=== PATIENT | female | born 1960 | race Caucasian/White ===

== ENCOUNTER → 2020-01-22 14:20 | Outpatient (BNVA) | payer OTHER, SELFPAY | PROVIDERS: Family Provider Family Medicine; PCP Family Medicine; Visit Provider Internal Medicine | DX: M19.90 Unspecified osteoarthritis, unspecified site (principal); Z11.59 Encounter for screening for other viral diseases; Z79.899 Other long term (current) drug therapy | CPT/HCPCS: 36415; 99213 ==

== ENCOUNTER 2020-01-22 16:25 | Outpatient (CLI) | payer OTHER, SELFPAY ==
--- NOTE | 2020-01-22 16:29 | XR_ITS ---
WS: [id number] LEFT HAND: 3 VIEW(S) TECHNIQUE: PA, oblique and lateral. HISTORY: hand pain COMPARISON: None available. No acute fracture or dislocation. Severe degenerative changes at the second PIP joint. There is loss of the joint space and cartilage w ith erosive and productive changes in the bone. There are erosions and overhanging margins. There is additional mild narrowing of the remaining interphalangeal joints. Sparing of the first carpometacarp al joint. No erosions at the metacarpal heads. XR/XR hand LT 2V [id number] IMPRESSION: 1. Advanced degenerative changes of erosive and productive changes most signif icant at the second PIP joint. Sparing of the metacarpal heads. Consider gout a nd erosive arthritis. 2. No metacarpal head erosions.
--- NOTE | 2020-01-22 16:29 | XR_ITS ---
WS: [id number] BILATERAL AP HIPs: 2 VIEW(S) TECHNIQUE: AP and lateral. HISTORY: SI joint arthritis COMPARISON: None available. No acute fracture or dislocation of the hips. No joint space narrowing or bone destruction. No soft tissue abnormality. Inferior SI joints contains a small amount of air but no fusion. XR/XR hip BI 2V wo/w pel [id number] IMPRESSION: Negative AP hips.
--- NOTE | 2020-01-22 16:29 | XR_ITS ---
WS: [id number] RIGHT HAND: 3 VIEW(S) TECHNIQUE: PA, oblique and lateral. HISTORY: hand pain COMPARISON: None available. No acute fracture or dislocation. Interphalangeal joint space narrowing with sclerosis, bone proliferation and mild subluxation, most s ignificant involving the DIP joints of the second and third finger and also mild diffuse involvement of the PIP joints from the second through fifth fingers. There is soft tissue edema and thickening of the joint spaces. No involvement of the carpometacarpal. XR/XR hand RT 2V [id number] IMPRESSION: Findings most significant for osteoarthritis.
== END 2020-01-22 16:26 | disposition home or self-care (01) ==
LOC: WPI 16:29
PROVIDERS: PCP Family Medicine; Visit Provider Internal Medicine
DX: M19.90 Unspecified osteoarthritis, unspecified site (principal); M79.642 Pain in left hand; M79.641 Pain in right hand
CPT/HCPCS: 73120; 73521; 80053; 82542; 84550; 85025; 85651; 86140; 86431; 86704; 86803; 86812; 87340

== ENCOUNTER → 2020-02-19 09:38 | Outpatient (BNVA) | payer OTHER, SELFPAY | PROVIDERS: PCP Family Medicine; Visit Provider Internal Medicine | DX: M19.90 Unspecified osteoarthritis, unspecified site (principal); R76.8 Other specified abnormal immunological findings in serum; D75.89 Other specified diseases of blood and blood-forming organs; R35.8 Other polyuria | CPT/HCPCS: 81001; 99214 ==

== ENCOUNTER → 2020-10-28 12:33 | Outpatient (BNVA) | payer OTHER, SELFPAY | PROVIDERS: PCP Family Medicine; Visit Provider Internal Medicine Rheumatology | DX: Z79.899 Other long term (current) drug therapy (principal); M79.643 Pain in unspecified hand; R70.0 Elevated erythrocyte sedimentation rate; M19.90 Unspecified osteoarthritis, unspecified site | CPT/HCPCS: 36415; 80053; 85025; 85651; 86140 ==

== ENCOUNTER 2020-11-06 10:44 | Outpatient (CLI) | payer OTHER, SELFPAY ==
--- NOTE | 2020-11-06 10:50 | XR_ITS ---
WS: [id number] Lateral views of cervical spine in the flexion, extension and neutral positions. 11/06/2020 Clinical Data: M19.90 - Unspecified osteoarthritis, unspecified site Comparison: None. Findings: There is an anterior cervical disc fusion at C5-C6 with obliteration of the C5-C6 disc space. On flex ion and extension the disc fusion is stable. No limitation of motion or subluxation is noted. There i s no prevertebral soft tissue swelling. XR/XR cervical spine fl/ex [id number] Impression: 1. C5-C6 anterior cervical disc fusion. 2. Stable anterior cervical disc fusion on flexion or extension. 3. Negative for subluxation on flexion or extension.
--- NOTE | 2020-11-06 10:50 | XR_ITS ---
WS: [id number] Lumbar spine, 3 views, 11/06/2020 Clinical Data: M19.90 - Unspecified osteoarthritis, unspecified site Comparison: None. Findings: No compression fractures or subluxation is seen. No disc space narrowing is seen. The transverse proc esses and SI joints are normal. There is a large amount of fecal material in the colon. XR/XR lumbar spine 2-3V* [id number] Impression: Negative lumbar spine.
--- NOTE | 2020-11-06 10:50 | XR_ITS ---
WS: [id number] Thoracic spine, 3 views, 11/06/2020 Clinical Data: M19.90 - Unspecified osteoarthritis, unspecified site Comparison: None. Findings: No compression fractures are seen. The disc heights are normal. The paravertebral regions are normal. There is an anterior cervical disc fusion at C5-C6. XR/XR thoracic spine 3V* [id number] Impression: Negative thoracic spine.
[2020-11-06 12:08] LABS: C Reactive Protein 1.3 mg/L (0.0-4.9); Creatine Phosphokinase 268 U/L (26-192)
[2020-11-06 13:17] LABS: CKMB 1.8 ng/mL (0-5.34)
[2020-11-06 13:20] LABS: Erythrocyte Sedimentation Rate 34 mm/hr (0-15)
[2020-11-11 16:53] LABS: Gliadin Ab.IgA 3 U (<20); Gliadin Ab.IgG 1 U (<20)
[2020-11-12 02:53] LABS: Tissue Transglutaminase IgA Ab <1 U/mL; Tissue transglutaminase Ab.IgG <1 U/mL
[2020-11-12 16:52] LABS: Immunoglobulin A 131 mg/dL (70-320)
== END 2020-11-06 10:45 | disposition home or self-care (01) ==
PROVIDERS: PCP Family Medicine; Visit Provider Internal Medicine
DX: M19.90 Unspecified osteoarthritis, unspecified site (principal); M79.643 Pain in unspecified hand; R70.0 Elevated erythrocyte sedimentation rate; Z79.899 Other long term (current) drug therapy
CPT/HCPCS: 72040; 72072; 72100; 81291; 82550; 82553; 82784; 83516; 85651; 86140; 99214

== ENCOUNTER → 2020-12-09 11:14 | Outpatient (BNVA) | payer OTHER, SELFPAY | PROVIDERS: PCP Family Medicine; Visit Provider Internal Medicine | DX: M19.90 Unspecified osteoarthritis, unspecified site (principal); R70.0 Elevated erythrocyte sedimentation rate; Z79.899 Other long term (current) drug therapy | CPT/HCPCS: 36415; 80053; 85025; 85651; 86140 ==

== ENCOUNTER → 2020-12-15 09:40 | Outpatient (BNVA) | payer OTHER, SELFPAY | PROVIDERS: PCP Family Medicine; Visit Provider Internal Medicine | DX: M19.90 Unspecified osteoarthritis, unspecified site (principal); R70.0 Elevated erythrocyte sedimentation rate; M79.643 Pain in unspecified hand; Z11.1 Encounter for screening for respiratory tuberculosis; Z79.899 Other long term (current) drug therapy; Z85.9 Personal history of malignant neoplasm, unspecified | CPT/HCPCS: 36415; 86480; 99213 ==

== ENCOUNTER → 2020-12-18 12:07 | Outpatient (BNVA) | payer OTHER, SELFPAY | PROVIDERS: PCP Family Medicine; Referring Provider Family Medicine; Visit Provider Anesthesiology | DX: G89.29 Other chronic pain (principal); M54.5 Low back pain; M19.90 Unspecified osteoarthritis, unspecified site; M79.651 Pain in right thigh; M79.652 Pain in left thigh; Z79.891 Long term (current) use of opiate analgesic | CPT/HCPCS: 99204 ==

== ENCOUNTER → 2021-01-07 15:20 | Outpatient (BNVA) | payer OTHER, SELFPAY | PROVIDERS: PCP Family Medicine; Visit Provider Anesthesiology | DX: G89.29 Other chronic pain (principal); M54.5 Low back pain; M19.90 Unspecified osteoarthritis, unspecified site; Z79.891 Long term (current) use of opiate analgesic | CPT/HCPCS: 99213 ==

== ENCOUNTER → 2021-03-18 09:56 | Outpatient (BNVA) | payer OTHER, SELFPAY | PROVIDERS: PCP Family Medicine; Visit Provider Internal Medicine | DX: M19.049 Primary osteoarthritis, unspecified hand (principal); M54.50 Low back pain, unspecified; R70.0 Elevated erythrocyte sedimentation rate; M70.60 Trochanteric bursitis, unspecified hip; Y93.9 Activity, unspecified; G62.9 Polyneuropathy, unspecified; Z79.899 Other long term (current) drug therapy; Z92.21 Personal history of antineoplastic chemotherapy | CPT/HCPCS: 36415; 99214 ==

== ENCOUNTER 2021-03-18 11:15 | Outpatient (CLI) | payer OTHER, SELFPAY ==
--- NOTE | 2021-03-18 11:21 | XR_ITS ---
WS: [id number] LUMBAR SPINE: 3 VIEWS TECHNIQUE: AP, lateral and L5-S1 spot. HISTORY: M54.50 - Low back pain, unspecified COMPARISON: 11/06/2020 Posterior alignment is normal. There is very slight RIGHT curvature of the lumbar spine. Pedicles are all identified. No acute fracture. Diffuse osteopenia. Facet joint arthritis is mild at L4-5 and L5-S1. SI joints are symmetric bilaterally. No soft tissue abnormalities. XR/XR lumbar spine 2-3V* [id number] IMPRESSION: 1. No acute lumbar spine fracture. 2. Mild RIGHT curvature lumbar spine with osteopenia. 3. Mild facet joint arthritis at L4-5 and L5-S1.
--- NOTE | 2021-03-18 11:21 | XR_ITS ---
WS: [id number] Bilateral hips. HISTORY: Chronic hip and low back pain. COMPARISON: None. Mild narrowing of the hip joints bilaterally. No significant osteophytosis. No destructive bone lesio ns. No significant osteophytic ridging. No soft tissue abnormalities. XR/XR hip BI 3-4V wo/w pel [id number] IMPRESSION: Very mild early changes of osteoarthritis at the hip joints.
== END 2021-03-18 11:16 | disposition home or self-care (01) ==
PROVIDERS: PCP Family Medicine; Visit Provider Internal Medicine
DX: M54.50 Low back pain, unspecified (principal)
CPT/HCPCS: 72100; 73522; 80053; 82607; 84207; 84443; 85025; 85651; 86140

== ENCOUNTER → 2021-04-17 10:00 | Outpatient (BNVA) | payer OTHER, SELFPAY | PROVIDERS: PCP Family Medicine; Visit Provider Anesthesiology | DX: G89.29 Other chronic pain (principal); M54.50 Low back pain, unspecified; M19.90 Unspecified osteoarthritis, unspecified site; Z79.899 Other long term (current) drug therapy; Z79.891 Long term (current) use of opiate analgesic | CPT/HCPCS: 99213 ==

== ENCOUNTER 2021-11-09 09:32 | Outpatient (CLI) | payer OTHER, SELFPAY ==
[2021-11-09 10:05] LABS: Basophils % 0.7 %; Eosinophils # 0.1 10^3/uL (0.0-0.8); Eosinophils % 2.1 %; Hematocrit 36.1 % (37.0-47.0); Hemoglobin 12.1 g/dL (11.5-15.3); Lymphocytes # 2.3 10^3/uL (0.8-4.8); Lymphocytes % 37.5 %; Mean Corpuscular HGB Conc 33.5 g/dL (30.0-36.0); Mean Corpuscular Hemoglobin 31.9 pg (28.0-34.0); Mean Corpuscular Volume 95.3 fl (81-99); Mean Platelet Volume 10.1 fL (7.4-10.4); Monocytes # 0.6 10^3/uL (0.2-0.9); Neutrophils # 3.01 10^3/uL (1.8-7.7); Neutrophils % 49.2 %; Nucleated Red Blood Cells % 0 %; Platelet Count 289 10^3/cmm (130-400); Red Blood Count 3.79 10^6/uL (4.1-5.3); Red Cell Distribution Width 12.3 % (12.1-15.1); White Blood Count 6.1 10^3/uL (4.0-10.0)
[2021-11-09 10:16] LABS: Alanine Aminotransferase 22 U/L (0-33); Albumin Level 4.5 g/dL (3.5-5.2); Alkaline Phosphatase 79 IU/L (35-105); Aspartate Amino Transferase 28 U/L (0-32); Blood Urea Nitrogen 11 mg/dL (8-23); Calcium 9.3 mg/dL (8.5-10.5); Carbon Dioxide 27 mmol/L (22-29); Chloride 106 mmol/L (98-107); Globulin 2.4 g/dL (1.3-4.6); Glomerular Filtration Rate 101.3 mL/min (90-130); Glucose 77 mg/dL (65-115); Osmolality Calculated 292 mOsm/kg (285-295); Sodium 142 mmol/L (136-145); Total Bilirubin 0.2 mg/dL (0.15-1.2); Total Protein 6.9 g/dL (6.6-8.7)
[2021-11-12 18:28] LABS: Erythrocyte Sedimentation Rate 36 mm/hr (0-15)
== END 2021-11-09 09:33 | disposition home or self-care (01) ==
PROVIDERS: PCP Family Medicine; Visit Provider Internal Medicine
DX: G62.9 Polyneuropathy, unspecified (principal); M54.50 Low back pain, unspecified; M70.60 Trochanteric bursitis, unspecified hip
CPT/HCPCS: 36415; 80053; 85025; 85651; 86140

== ENCOUNTER → 2022-04-19 08:22 | Outpatient (BNVA) | payer MEDICARE, OTHER, SELFPAY | PROVIDERS: PCP Family Medicine; Visit Provider Internal Medicine | DX: M19.90 Unspecified osteoarthritis, unspecified site (principal); Z79.891 Long term (current) use of opiate analgesic; R70.0 Elevated erythrocyte sedimentation rate; G62.9 Polyneuropathy, unspecified | CPT/HCPCS: 80053; 82306; 84207; 85025; 85651; 86140; 99213 ==

== ENCOUNTER → 2022-10-07 15:15 | Outpatient (BNVA) | payer MEDICARE, OTHER, SELFPAY | PROVIDERS: PCP Family Medicine; Visit Provider Internal Medicine | DX: G62.9 Polyneuropathy, unspecified (principal); M19.90 Unspecified osteoarthritis, unspecified site; R70.0 Elevated erythrocyte sedimentation rate | CPT/HCPCS: 99214 ==

== ENCOUNTER 2022-10-08 09:05 | Outpatient (CLI) | payer MEDICARE, OTHER, SELFPAY ==
[2022-10-08 09:51] LABS: Basophils % 0.4 %; Eosinophils # 0.1 10^3/uL (0.0-0.8); Eosinophils % 0.5 %; Hematocrit 41.8 % (37.0-47.0); Hemoglobin 13.3 g/dL (11.5-15.3); Lymphocytes # 1.8 10^3/uL (0.8-4.8); Lymphocytes % 19.8 %; Mean Corpuscular HGB Conc 31.8 g/dL (30.0-36.0); Mean Corpuscular Hemoglobin 31.6 pg (28.0-34.0); Mean Corpuscular Volume 99.3 fl (81-99); Mean Platelet Volume 9.7 fL (7.4-10.4); Monocytes # 0.8 10^3/uL (0.2-0.9); Monocytes % 8.7 %; Neutrophils # 6.39 10^3/uL (1.8-7.7); Neutrophils % 69.8 %; Nucleated Red Blood Cells % 0 %; Platelet Count 347 10^3/cmm (130-400); Red Blood Count 4.21 10^6/uL (4.1-5.3); Red Cell Distribution Width 12.8 % (12.1-15.1); White Blood Count 9.2 10^3/uL (4.0-10.0)
[2022-10-08 10:04] LABS: Alanine Aminotransferase 21 U/L (0-33); Albumin Level 4.4 g/dL (3.5-5.2); Alkaline Phosphatase 71 U/L (35-105); Aspartate Amino Transferase 27 U/L (0-32); Blood Urea Nitrogen 18 mg/dL (8-23); Calcium 9.8 mg/dL (8.5-10.5); Carbon Dioxide 24 mmol/L (22-29); Chloride 103 mmol/L (98-107); Globulin 2.9 g/dL (1.3-4.6); Glucose 91 mg/dL (65-115); Osmolality Calculated 291 mOsm/kg (285-295); Sodium 140 mmol/L (136-145); Total Bilirubin 0.3 mg/dL (0.15-1.2); Total Protein 7.3 g/dL (6.6-8.7)
[2022-10-08 10:23] LABS: Erythrocyte Sedimentation Rate 46 mm/hr (0-15)
[2022-10-08 10:45] LABS: Anion Gap 17.1 (5-19); Potassium 4.1 mmol/L (3.5-5.1)
[2022-10-12 12:09] LABS: Vitamin B6 Plasma 59.1 ng/mL (2.1-21.7)
== END 2022-10-08 09:06 | disposition home or self-care (01) ==
LOC: LAB 09:10
PROVIDERS: PCP Family Medicine; Visit Provider Internal Medicine
DX: G62.9 Polyneuropathy, unspecified (principal)
CPT/HCPCS: 36415; 80053; 84207; 85025; 85651; 86140

== ENCOUNTER → 2023-02-10 15:51 | Outpatient (BNVA) | payer MEDICARE, OTHER, SELFPAY | PROVIDERS: PCP Family Medicine; Visit Provider Internal Medicine | DX: G62.9 Polyneuropathy, unspecified (principal); M19.041 Primary osteoarthritis, right hand; M06.00 Rheumatoid arthritis without rheumatoid factor, unspecified site; R70.0 Elevated erythrocyte sedimentation rate | CPT/HCPCS: 36415; 73120; 80053; 83520; 85025; 85651; 86140; 86480; 99214 ==

== ENCOUNTER → 2023-04-18 13:04 | Outpatient (BNVA) | payer MEDICARE, OTHER, SELFPAY | PROVIDERS: PCP Family Medicine; Visit Provider Internal Medicine | DX: M19.90 Unspecified osteoarthritis, unspecified site (principal); R70.0 Elevated erythrocyte sedimentation rate; G62.9 Polyneuropathy, unspecified | CPT/HCPCS: 80053; 85025; 85651; 86140; 99213 ==

== ENCOUNTER → 2023-10-11 15:39 | Outpatient (BNVA) | payer MEDICARE, OTHER, SELFPAY | PROVIDERS: PCP Family Medicine; Visit Provider Internal Medicine Rheumatology | DX: M19.042 Primary osteoarthritis, left hand (principal); Z79.899 Other long term (current) drug therapy; M15.4 Erosive (osteo)arthritis; Z71.85 Encounter for immunization safety counseling | CPT/HCPCS: 73130; 80076; 82306; 82565; 85025; 85651; 86140; 99214 ==

== ENCOUNTER 2023-11-10 14:43 | Outpatient (CLI) | payer MEDICARE, OTHER, SELFPAY ==
--- NOTE | 2023-11-10 14:50 | MR_ITS ---
WS: [id number] MRI LEFT SHOULDER HISTORY: L SHOULDER IMPINGEMENT COMPARISON: None available. TECHNIQUE: Multiplanar sequences of the shoulder joint are submitted. This examination is compromised by body habitus and breathing motion artifact. Mild AC joint arthriti s. Very mild subacromial impingement. No os acromion. Biceps tendon does appear to be in normal posit ion in the bicipital groove. No rotator cuff muscle atrophy or edema. Subscapularis recess is distended. Supraspinatus tendinopath y. It would be difficult to exclude small tendon tears. Very poor visualization of the tendons due to motion artifact. There is an anchor in the humeral head indicating prior rotator cuff repair. Subchondral cyst in the glenoid. Labrum is poorly visualized. Slightly high riding humeral head with narrowing of the glenohumeral joint. MR/MR shoulder LT con* [id number] IMPRESSION: 1. Quality of this examination is significantly degraded by body habitus and s ignificant motion artifact. 2. There is a single anchor identified in the humeral head. 3. Mild AC joint arthritis. 4. Mild narrowing of the glenohumeral joint. 5. No rotator cuff muscle atrophy or edema. Quality of the examination is not sufficient to exclude rotator cuff or labral tears. There is at least tendinopa thy in the supraspinatus tendon distally. 6. Subchondral cyst in the glenoid.
== END 2023-11-10 14:44 | disposition home or self-care (01) ==
LOC: RAD 14:44
PROVIDERS: PCP Family Medicine; Visit Provider Orthopaedic Surgery
DX: M75.42 Impingement syndrome of left shoulder (principal); M19.012 Primary osteoarthritis, left shoulder; M75.92 Shoulder lesion, unspecified, left shoulder; M85.412 Solitary bone cyst, left shoulder
CPT/HCPCS: 73221

== ENCOUNTER → 2024-03-22 13:01 | Outpatient (BNVA) | payer MEDICARE, OTHER, SELFPAY | PROVIDERS: PCP Family Medicine; Visit Provider Internal Medicine Rheumatology | DX: Z79.899 Other long term (current) drug therapy (principal); M15.4 Erosive (osteo)arthritis; Z71.85 Encounter for immunization safety counseling | CPT/HCPCS: 36415; 80076; 82565; 85025; 85651; 86140; 99214 ==

== ENCOUNTER → 2024-07-26 13:51 | Outpatient (BNVA) | payer MEDICARE, OTHER, SELFPAY | PROVIDERS: PCP Family Medicine; Visit Provider Internal Medicine Rheumatology | DX: M15.4 Erosive (osteo)arthritis (principal); M19.90 Unspecified osteoarthritis, unspecified site; Z79.899 Other long term (current) drug therapy; Z71.85 Encounter for immunization safety counseling | CPT/HCPCS: 36415; 80076; 82565; 85025; 85651; 86140; 99214 ==

== ENCOUNTER → 2024-09-25 08:52 | Outpatient (BNVA) | payer MEDICARE, OTHER, SELFPAY | PROVIDERS: PCP Family Medicine; Referring Provider Internal Medicine Rheumatology; Visit Provider Internal Medicine | DX: R63.5 Abnormal weight gain (principal); Z80.8 Family history of malignant neoplasm of other organs or systems; Z79.891 Long term (current) use of opiate analgesic | CPT/HCPCS: 99204 ==

== ENCOUNTER → 2024-10-25 13:51 | Outpatient (BNVA) | payer MEDICARE, OTHER, SELFPAY | PROVIDERS: PCP Family Medicine; Visit Provider Internal Medicine Rheumatology | DX: M15.4 Erosive (osteo)arthritis (principal); Z79.899 Other long term (current) drug therapy; Z71.85 Encounter for immunization safety counseling | CPT/HCPCS: 36415; 80076; 82565; 85025; 85651; 86140; 99214 ==

== ENCOUNTER 2024-12-26 07:48 | Outpatient (CLI) | payer MEDICARE, OTHER, SELFPAY ==
--- NOTE | 2024-12-26 08:30 | USR_ITS ---
PROCEDURE INFORMATION: Exam: US Soft Tissue Head and Neck, Thyroid Exam date and time: 12/26/2024 8:05 AM Age: 64 years old Clinical indication: Condition or disease; Thyroid disorder; Other: Not specified TECHNIQUE: Imaging protocol: Real-time ultrasound scan of the neck with image documentation. Exam focused on the thyroid. COMPARISON: MR shoulder LT wo con* [id number] 11/10/2023 3:12 PM FINDINGS: Right thyroid lobe: No nodules. Left thyroid lobe: No nodules. Isthmus: No nodules. US/US thyroid [id number] IMPRESSION: Unremarkable thyroid.
== END 2024-12-26 07:49 | disposition home or self-care (01) ==
LOC: RAD 07:49
PROVIDERS: PCP Family Medicine; Visit Provider Internal Medicine
DX: R63.5 Abnormal weight gain (principal); Z80.8 Family history of malignant neoplasm of other organs or systems
CPT/HCPCS: 76536

== ENCOUNTER → 2025-01-29 08:11 | Outpatient (BNVA) | payer MEDICARE, OTHER, SELFPAY | PROVIDERS: PCP Family Medicine; Referring Provider Internal Medicine Rheumatology; Visit Provider Internal Medicine | DX: R63.5 Abnormal weight gain (principal); Z80.8 Family history of malignant neoplasm of other organs or systems | CPT/HCPCS: 99214 ==

== ENCOUNTER 2025-02-07 08:42 | Outpatient (CLI) | payer MEDICARE, OTHER, SELFPAY ==
[2025-02-07 10:15] LABS: Thyroid Stimulating Hormone 3.13 uIU/mL (0.27-4.20)
[2025-02-07 11:25] LABS: Free T4 Free Thyroxine 0.79 ng/dL (0.82-1.77)
== END 2025-02-07 08:43 | disposition home or self-care (01) ==
LOC: LAB 08:45
PROVIDERS: PCP Family Medicine; Visit Provider Internal Medicine
DX: Z79.891 Long term (current) use of opiate analgesic (principal); Z80.8 Family history of malignant neoplasm of other organs or systems; R63.5 Abnormal weight gain
CPT/HCPCS: 36415; 84305; 84439; 84443

== ENCOUNTER 2025-02-21 08:54 | Outpatient (CLI) | payer MEDICARE, OTHER, SELFPAY ==
[2025-02-21 10:05] LABS: Free T4 Free Thyroxine 0.67 ng/dL (0.82-1.77); Thyroid Stimulating Hormone 3.72 uIU/mL (0.27-4.20)
== END 2025-02-21 08:55 ==
LOC: LAB 08:57
PROVIDERS: PCP Family Medicine; Visit Provider Internal Medicine
DX: M15.4 Erosive (osteo)arthritis (principal); M06.041 Rheumatoid arthritis without rheumatoid factor, right hand; M06.042 Rheumatoid arthritis without rheumatoid factor, left hand; Z79.899 Other long term (current) drug therapy; Z71.85 Encounter for immunization safety counseling; Z85.42 Personal history of malignant neoplasm of other parts of uterus
CPT/HCPCS: 36415; 84305; 84439; 84443; 99214

== ENCOUNTER 2025-02-25 09:07 | Outpatient (CLI) | payer MEDICARE, OTHER, SELFPAY ==
[2025-02-25 11:05] LABS: Hematocrit 35.2 % (36-47); Hemoglobin 11.30 g/dL (11.27-16.99); Mean Corpuscular HGB Conc 32.1 g/dL (30-55); Mean Corpuscular Hemoglobin 32.5 pg (27-33); Mean Corpuscular Volume 101.1 fl (85-98); Nucleated Red Blood Cells % 0 %; Platelet Count 261 10^3/cmm (157-399); Red Blood Count 3.48 10^6/uL (3.85-5.65); White Blood Count 5.20 10^3/uL (3.29-11.43)
[2025-02-25 11:30] LABS: Alanine Aminotransferase 23 U/L (0-33); Albumin Level 4.5 g/dL (3.5-5.2); Alkaline Phosphatase 73 U/L (35-105); Aspartate Amino Transferase 33 U/L (0-32); Globulin 2.6 g/dL (1.3-4.6); Total Protein 7.1 g/dL (6.6-8.7)
[2025-02-25 12:54] LABS: Creatinine 24 Hour Urine 1172.5 mg/dL (601-1689); Total Volume Urine 1675 ml
== END 2025-02-25 09:08 | disposition home or self-care (01) ==
LOC: LAB 09:08
PROVIDERS: Internal Medicine Rheumatology; PCP Family Medicine; Visit Provider Internal Medicine
DX: Z79.899 Other long term (current) drug therapy (principal); R63.5 Abnormal weight gain; Z80.8 Family history of malignant neoplasm of other organs or systems
CPT/HCPCS: 36415; 80076; 82565; 82570; 85025; 85651; 86140

== ENCOUNTER 2025-03-08 09:12 | Outpatient (CLI) | payer MEDICARE, OTHER, SELFPAY ==
[2025-03-08 10:04] LABS: Free T4 Free Thyroxine 0.79 ng/dL (0.82-1.77); Thyroid Stimulating Hormone 3.14 uIU/mL (0.27-4.20)
== END 2025-03-08 09:13 | disposition home or self-care (01) ==
LOC: LAB 09:15
PROVIDERS: Absent Provider Internal Medicine Rheumatology; PCP Family Medicine; Visit Provider Internal Medicine
DX: Z79.891 Long term (current) use of opiate analgesic (principal); Z79.899 Other long term (current) drug therapy; Z80.8 Family history of malignant neoplasm of other organs or systems; M15.4 Erosive (osteo)arthritis
CPT/HCPCS: 36415; 82533; 84439; 84443